=== PATIENT | male | born 1990 | race Caucasian/White ===

== ENCOUNTER 2018-03-03 11:52 | Emergency (ER) | payer MEDICAID, OTHER ==
[~2018-03-03] VITALS: Ht 182.9 cm; Wt 106.5 kg
[2018-03-03] MEDS ORDERED: ketorolac trometh inj. 60 MG/2 ML VIAL IM ONE (12:20)
[2018-03-03] MEDS ORDERED: ondansetron 4mg rapidly disintigrating tab PO ONE (12:20)
[2018-03-03] MEDS ORDERED: diphenhydrAMINE 25mg capsule PO ONE (13:15)
[2018-03-03] MEDS ORDERED: proCHLORperazine 10 MG/2 ml inj IM ONE (13:15)
[2018-03-03] MEDS ORDERED: PROC-8 PO (13:17)
[2018-03-03] MEDS ORDERED: HYDR-565 PO (13:17)
[2018-03-03 14:02] VITALS: BP 120/69
== END 2018-03-03 14:09 | disposition home or self-care (01) ==
LOC: ER 11:53
DX: R51 Headache (principal); R11.2 Nausea with vomiting, unspecified
CPT/HCPCS: 96372; 99284; J0780; J1885; Q0163

== ENCOUNTER 2019-07-10 07:21 | Emergency (ER) | payer MEDICAID, OTHER ==
[~2019-07-10] VITALS: Ht 185.4 cm; Wt 110.0 kg
[~2019-07-10 07:21] MED LIST: PROC-8 PO
[2019-07-10 07:37] VITALS: BP 153/121
[2019-07-10] MEDS ORDERED: normal saline 1000ML IV soln IV ONE (08:10)
--- NOTE | 2019-07-10 08:28 | NUR ---
Throat swab collected and sent to lab.
[2019-07-10 08:41] LABS: BASOPHILS # (AUTO) 0.1 X10'3 (0-0.2); BASOPHILS % (AUTO) 1.5 % (0-1); EOSINOPHILS % (AUTO) 0.8 % (0-6); HEMATOCRIT 48.6 % (42.0-52.0); LYMPHOCYTES # (AUTO) 1.2 X10'3 (1.1-4.8); MEAN CORPUSCULAR HEMOGLOBIN 30.8 PG (27.0-31.0); MEAN CORPUSCULAR HGB CONC 34.9 g/dL (33.0-36.5); MEAN CORPUSCULAR VOLUME 88.3 FL (78-98); MEAN PLATELET VOLUME 8.5 FL (7.4-10.4); MONOCYTES # (AUTO) 0.6 X10'3 (0-0.9); MONOCYTES % (AUTO) 11.3 % (2-12); NEUTROPHILS # (AUTO) 3.2 X10'3 (1.8-7.7); NEUTROPHILS % (AUTO) 63.4 % (42-75); PLATELET COUNT 177 X10'3 (140-440); RED BLOOD COUNT 5.51 X10'6 (4.70-6.10); RED CELL DISTRIBUTION WIDTH 13.1 % (11.5-14.5); WHITE BLOOD COUNT 5.1 X10'3 (4.5-11.0)
[2019-07-10 08:54] LABS: ALANINE AMINOTRANSFERASE 50 U/L (12-78); ALBUMIN 4.4 G/DL (3.4-5.0); ALKALINE PHOSPHATASE 84 IU/L (46-116); ANION GAP 13 (8-16); ASPARTATE AMINO TRANSFERASE 29 U/L (10-37); BILIRUBIN,TOTAL 0.6 MG/DL (0.1-1.0); BLOOD UREA NITROGEN 10 MG/DL (7-18); BUN/CREATININE RATIO 9.8 (5.4-32.0); CALCIUM 9.3 MG/DL (8.5-10.1); CHLORIDE 101 MMOL/L (99-107); CREATININE 1.02 MG/DL (0.60-1.10); GLUCOSE 113 MG/DL (70-104); MAGNESIUM 1.9 MG/DL (1.5-2.4); POTASSIUM 3.8 MMOL/L (3.5-5.1); SODIUM 139 MMOL/L (135-145); TOTAL CARBON DIOXIDE 25.3 MMOL/L (24-32); TOTAL PROTEIN 8.6 G/DL (6.4-8.2); eGFR 88 ML/MIN
== END 2019-07-10 09:46 | disposition home or self-care (01) ==
LOC: ER 07:21
DX: M79.18 Myalgia, other site (principal); J02.9 Acute pharyngitis, unspecified; F10.99 Alcohol use, unspecified with unspecified alcohol-induced disorder; Z79.899 Other long term (current) drug therapy; Y90.9 Presence of alcohol in blood, level not specified
CPT/HCPCS: 36415; 80053; 83605; 83735; 84145; 85025; 87040; 87081; 87880; 99283; J7030

== ENCOUNTER 2020-08-14 00:49 | Emergency (ER) | payer MEDICAID ==
[~2020-08-14] VITALS: Ht 182.9 cm; Wt 122.7 kg
[2020-08-14 01:22] VITALS: BP 170/90
[2020-08-14] MEDS ORDERED: PENI500T2 PO (03:05)
[2020-08-14] MEDS ORDERED: ACET-3068 PO (03:05)
== END 2020-08-14 03:28 | disposition home or self-care (01) ==
LOC: ER 00:50
DX: K02.9 Dental caries, unspecified (principal); K08.89 Other specified disorders of teeth and supporting structures; F17.200 Nicotine dependence, unspecified, uncomplicated; Z72.89 Other problems related to lifestyle; Z79.2 Long term (current) use of antibiotics; Z79.899 Other long term (current) drug therapy
CPT/HCPCS: 99283

== ENCOUNTER 2020-12-19 06:31 | Emergency (ER) | payer MEDICAID ==
[~2020-12-19] VITALS: Ht 188 cm; Wt 122.7 kg
[2020-12-19] MEDS ORDERED: ondansetron/PF 4mg/2ml inj IV ONE (06:55)
[2020-12-19] MEDS ORDERED: normal saline 1000ML IV soln IVB ONE (06:55)
[2020-12-19] MEDS ORDERED: morphine 4 MG/ML inj SYRINge IV PRN (06:55)
[2020-12-19] MEDS ORDERED: ketorolac trometh. 30mg/ml inj. IV ONE (06:55)
[2020-12-19 06:56] LABS: CLARITY,URINE CLEAR (Clear); COLOR,URINE YELLOW (Yellow); GLUCOSE, URINE NEGATIVE (Neg); KETONES,URINE NEGATIVE (Neg); LEUKOCYTE ESTERASE ,URINE NEGATIVE (Neg); NITRITES, URINE NEGATIVE (Neg); OCCULT BLOOD,URINE LARGE (Neg); PROTEIN,URINE NEGATIVE (Neg); UROBILINOGEN,URINE 0.2 E.U/dL (0.2-1.0)
[2020-12-19 07:00] LABS: UA COLLECTION TYPE CLN CATCH MIDSTREAM
[2020-12-19 07:12] LABS: BACTERIA,URINE NONE SEEN /HPF (Neg); RBC,URINE 20-50 /HPF (0-2); SQUAMOUS EPITHELIAL CELL,UR FEW /LPF (FEW); WBC,URINE 0-4 /HPF (0-4)
[2020-12-19 07:40] LABS: BASOPHILS % (AUTO) 0.7 % (0-1); EOSINOPHILS # (AUTO) 0.2 X10'3 (0-0.9); EOSINOPHILS % (AUTO) 2.9 % (0-6); HEMATOCRIT 44.4 % (42.0-52.0); LYMPHOCYTES % (AUTO) 33.3 % (21-51); MEAN CORPUSCULAR HEMOGLOBIN 29.6 PG (27.0-31.0); MEAN CORPUSCULAR HGB CONC 33.8 g/dL (33.0-36.5); MEAN CORPUSCULAR VOLUME 87.6 FL (78-98); MEAN PLATELET VOLUME 9.1 FL (7.4-10.4); MONOCYTES # (AUTO) 0.3 X10'3 (0-0.9); MONOCYTES % (AUTO) 5.9 % (2-12); NEUTROPHILS # (AUTO) 3.4 X10'3 (1.8-7.7); NEUTROPHILS % (AUTO) 57.2 % (42-75); PLATELET COUNT 199 X10'3 (140-440); RED BLOOD COUNT 5.07 X10'6 (4.70-6.10); WHITE BLOOD COUNT 5.9 X10'3 (4.5-11.0)
[2020-12-19 07:43] LABS: ALANINE AMINOTRANSFERASE 63 U/L (12-78); ALBUMIN 3.9 G/DL (3.4-5.0); ALBUMIN/GLOBULIN RATIO 1.2 (1.1-1.5); ALKALINE PHOSPHATASE 75 IU/L (46-116); ANION GAP 9 (8-16); ASPARTATE AMINO TRANSFERASE 26 U/L (10-37); BILIRUBIN,TOTAL 0.4 MG/DL (0.1-1.0); BLOOD UREA NITROGEN 10 MG/DL (7-18); BUN/CREATININE RATIO 9.8 (5.4-32.0); CALCIUM 8.8 MG/DL (8.5-10.1); CHLORIDE 108 MMOL/L (99-107); CREATININE 1.02 MG/DL (0.60-1.10); GLUCOSE 103 MG/DL (70-104); LIPASE 222 U/L (73-393); POTASSIUM 3.7 MMOL/L (3.5-5.1); SODIUM 142 MMOL/L (135-145); TOTAL CARBON DIOXIDE 24.6 MMOL/L (24-32); TOTAL PROTEIN 7.2 G/DL (6.4-8.2); eGFR 86 ML/MIN
[2020-12-19] MEDS ORDERED: FLO0.4C PO (09:16)
[2020-12-19] MEDS ORDERED: HYDR-3965 PO (09:16)
[2020-12-19] MEDS ORDERED: ONDA4TAB12 PO (09:19)
[2020-12-19 09:31] VITALS: BP 147/87
== END 2020-12-19 09:34 | disposition home or self-care (01) ==
LOC: ER 06:31
DX: N23 Unspecified renal colic (principal); F17.210 Nicotine dependence, cigarettes, uncomplicated; Z72.89 Other problems related to lifestyle; Z79.899 Other long term (current) drug therapy
CPT/HCPCS: 36415; 74176; 80053; 81001; 83690; 85025; 96361; 96374; 96375; 99284; J1885; J2405; J7030

== ENCOUNTER 2021-04-28 08:43 | Emergency (ER) | payer MEDICAID ==
[~2021-04-28] VITALS: Ht 185.4 cm; Wt 118.2 kg
[~2021-04-28 08:43] MED LIST changes: +ONDA4TAB12 PO
[2021-04-28 08:46] VITALS: BP 159/100
[2021-04-28] MEDS ORDERED: AMOX-117 PO (09:25)
[2021-04-28] MEDS ORDERED: HYDR-3972 PO (09:25)
== END 2021-04-28 09:37 | disposition home or self-care (01) ==
LOC: ER 08:43
DX: K04.7 Periapical abscess without sinus (principal); R22.0 Localized swelling, mass and lump, head; Z72.89 Other problems related to lifestyle; Z79.899 Other long term (current) drug therapy
CPT/HCPCS: 99283

== ENCOUNTER 2021-06-19 16:01 | Emergency (ER) | payer MEDICAID ==
[~2021-06-19] VITALS: Ht 185.4 cm; Wt 118.2 kg
[~2021-06-19 16:01] MED LIST changes: +AMOX-117 PO
[2021-06-19 17:23] VITALS: BP 133/97
[2021-06-19] MEDS ORDERED: ONDA4TAB6 PO (18:10)
[2021-06-19] MEDS ORDERED: HYDR-3965 PO (18:10)
[2021-06-19] MEDS ORDERED: PENI500T2 PO (18:10)
== END 2021-06-19 18:19 | disposition home or self-care (01) ==
LOC: ER 16:02
DX: K08.89 Other specified disorders of teeth and supporting structures (principal); Z79.2 Long term (current) use of antibiotics; Z79.899 Other long term (current) drug therapy; Z72.89 Other problems related to lifestyle
CPT/HCPCS: 99283

== ENCOUNTER 2021-12-06 09:35 | Emergency (ER) | payer MEDICAID ==
[~2021-12-06] VITALS: Ht 185.4 cm; Wt 106.0 kg
[~2021-12-06 09:35] MED LIST changes: +ONDA4TAB6 PO
[2021-12-06 12:05] VITALS: BP 135/87
[2021-12-06] MEDS ORDERED: ketorolac trometh inj. 60 MG/2 ML VIAL IM ONE (12:35)
[2021-12-06] MEDS ORDERED: ketorolac trometh. 30mg/ml inj. IM ONE (12:40)
[2021-12-06] MEDS ORDERED: DICL20GE TOP (12:50)
[2021-12-06] MEDS ORDERED: NAPR-56 PO (12:50)
== END 2021-12-06 12:56 | disposition home or self-care (01) ==
LOC: ER 09:36
DX: M70.51 Other bursitis of knee, right knee (principal); R25.2 Cramp and spasm; Z72.89 Other problems related to lifestyle; Z79.2 Long term (current) use of antibiotics; Z79.899 Other long term (current) drug therapy
CPT/HCPCS: 96372; 99283; J1885